=== PATIENT | male | born 1995 | race Caucasian/White ===

== ENCOUNTER 2018-11-27 22:41 | Emergency (ER) | payer SELFPAY, OTHER ==
[2018-11-27] MEDS: SOD CHLORIDE 0.9% 1,000 ML IV (23:12)
[2018-11-27] MEDS: KETOROLAC 30 MG INJ IV (23:13)
[2018-11-27] MEDS: DEXAMETHASONE 10 MG/ML 1 ML INJ IV (23:28)
[2018-11-27] MEDS: CLINDAMYCIN 600 MG/D5W (PMX) 50 ML IVPB (23:38)
== END 2018-11-28 00:47 | disposition home or self-care (01) ==
LOC: FTE 11-28 00:47
DX: J36 Peritonsillar abscess (principal); J45.909 Unspecified asthma, uncomplicated
CPT/HCPCS: 96374; 96375; 99284-25